=== PATIENT | female | born 1975 | race African-American/Black ===

== ENCOUNTER 2017-02-12 06:42 | Emergency (ER) | payer OTHER ==
[~2017-02-12] VITALS: Ht 172.7 cm; Wt 145.1 kg
[~2017-02-12 06:42] MED LIST: AUGMENTIN PO; BACTRIM DS TABL1 TA1 PO; FEOSOL PO; FERRO-TIME325 MG PO; GLUCOTROL PO; JANUVIA PO; KEFLEX500 MG PO; METFORMIN PO; PERCOCET5/325 PO; TOPROL XL PO; VOLTAREN50 MG PO
[2017-02-12] MEDS ORDERED: JANUMET 50-1,01 EACH (07:49)
[2017-02-12] MEDS ORDERED: LISINOPRIL10 MG PO (07:49)
[2017-02-12] MEDS ORDERED: CELEXA20 M1 (07:53)
[2017-02-12] MEDS ORDERED: GLIPIZIDE10 MG PO (08:34)
== END 2017-02-12 10:00 | disposition home or self-care (01) ==
LOC: CED 06:42
DX: F33.9 Major depressive disorder, recurrent, unspecified (principal); E11.9 Type 2 diabetes mellitus without complications; I10 Essential (primary) hypertension; F31.9 Bipolar disorder, unspecified; Z98.51 Tubal ligation status; Z90.49 Acquired absence of other specified parts of digestive tract; F17.200 Nicotine dependence, unspecified, uncomplicated; Z79.899 Other long term (current) drug therapy
CPT/HCPCS: 82947; 99284